=== PATIENT | female | born 1955 | race Caucasian/White ===

== ENCOUNTER → 2016-09-04 | Outpatient (CLI) | payer MEDICAID | LOC: RAD 12:15 | PROVIDERS: ATTEND Physician Assistant Surgical | DX: R06.02 Shortness of breath (principal); J44.9 Chronic obstructive pulmonary disease, unspecified | CPT/HCPCS: 71020 ==

== ENCOUNTER → 2016-09-06 | Outpatient (CLI) | payer MEDICAID | LOC: RAD 11:52 | PROVIDERS: ATTEND Internal Medicine | DX: M54.40 Lumbago with sciatica, unspecified side (principal); M47.896 Other spondylosis, lumbar region | CPT/HCPCS: 72110 ==

== ENCOUNTER 2017-01-06 06:07 | Inpatient (IN) | payer MEDICAID ==
[2017-01-06] MEDS ORDERED: ASPIRIN 81 MG TABLET, CHEWABLE PO ONE (06:23)
[2017-01-06] MEDS ORDERED: ALBUTEROL SULFATE 0.083% NEB 2.5 MG/3 ML AMPUL NEB ONE (06:32)
[2017-01-06] MEDS ORDERED: NORMAL SALINE 500 ML IV ONE (06:32)
[2017-01-06] MEDS ORDERED: MAGNESIUM SULFATE/D5W 100 ML IV ONE (06:32)
[2017-01-06] MEDS ORDERED: IPRATROPIUM/ALBUTEROL 0.5-2.5 MG/3 ML AMPUL NEB ONE (06:32)
[2017-01-06 07:01] LABS: VENOUS BLOOD BASE EXCESS 0.9 mmol/L; VENOUS BLOOD PH 7.26 (7.30-7.42)
[2017-01-06 07:03] LABS: VENOUS BLOOD PCO2 68.7 mmHg (35-63)
[2017-01-06 07:05] LABS: ABSOLUTE EOSINOPHILS # (AUTO) 0.2 10^3/uL (0.0-0.6); ABSOLUTE LYMPHOCYTES (AUTO) 0.4 10^3/uL (0.5-4.7); ABSOLUTE MONOCYTES (AUTO) 0.2 10^3/uL (0.1-1.4); ABSOLUTE NEUT (AUTO) 4.7 10^3/uL (1.7-8.2); BASOPHILS % (AUTO) 0.3 % (0-2); EOSINOPHILS % (AUTO) 3.4 % (0-6); HEMATOCRIT 42.5 % (36.0-47.0); HEMOGLOBIN 14.1 g/dL (12.0-15.5); HGB HCT DIFFERENCE -0.2; MEAN CORPUSCULAR HEMOGLOBIN 30.1 pg (27.0-33.4); MEAN CORPUSCULAR HGB CONC 33.1 g/dL (32.0-36.0); MEAN CORPUSCULAR VOLUME 91 fl (80-97); MONOCYTES % (AUTO) 4.4 % (3-13); RED BLOOD COUNT 4.68 10^6/uL (3.72-5.28); RED CELL DISTRIBUTION WIDTH 13.1 % (11.5-14.0); SEGMENTED NEUTROPHILS % (AUTO) 84.9 % (42-78); WHITE BLOOD COUNT 5.6 10^3/uL (4.0-10.5)
[2017-01-06 07:17] LABS: ALANINE AMINOTRANSFERASE 27 U/L (9-52); ALBUMIN 4.1 g/dL (3.5-5.0); ALKALINE PHOSPHATASE 105 U/L (38-126); ANION GAP 11 (5-19); ASPARTATE AMINO TRANSFERASE 28 U/L (14-36); BILIRUBIN,DIRECT 0.3 mg/dL (0.0-0.4); BILIRUBIN,TOTAL 0.6 mg/dL (0.2-1.3); BLOOD UREA NITROGEN 6 mg/dL (7-20); CALCIUM 9.1 mg/dL (8.4-10.2); CARBON DIOXIDE 30 mmol/L (22-30); CHLORIDE 103 mmol/L (98-107); CREATINE KINASE 124 U/L (30-135); CREATININE RESULT 0.71 mg/dL (0.52-1.25); GLUCOSE 181 mg/dL (75-110); MAGNESIUM 1.8 mg/dL (1.6-2.3); POTASSIUM 4.6 mmol/L (3.6-5.0); TOTAL PROTEIN 7.9 g/dL (6.3-8.2)
[2017-01-06 07:18] LABS: ALCOHOL < 10 mg/dL (NONE DETECTED)
--- NOTE | 2017-01-06 07:19 | RADIOLOGY REPORT (SQ) ---
EXAM DESCRIPTION: CHEST SINGLE VIEW COMPLETED DATE/TIME: 01/06/2017 7:09 am REASON FOR STUDY: cp COMPARISON: Chest x-ray 09/04/2016. EXAM PARAMETERS: NUMBER OF VIEWS: One view. TECHNIQUE: Single frontal radiographic view of the chest acquired. RADIATION DOSE: NA LIMITATIONS: The patient is rotated. FINDINGS: LUNGS AND PLEURA: Patchy ground-glass opacities at the bilateral lung bases. No pneumotho rax. Hyperlucent lungs, suggestive of emphysema. MEDIASTINUM AND HILAR STRUCTURES: No obvious masses. HEART AND VASCULAR STRUCTURES: Heart normal in size. No overt vascular congestion. BONES: No acute findings. HARDWARE: None in the chest. IMPRESSION: Patchy ground-glass opacities at the bilateral lung bases, may represent multifocal pneu monia. Radiographic followup to resolution recommended. Emphysema. TECHNICAL DOCUMENTATION: JOB ID: [id number]
[2017-01-06 07:28] LABS: CREATINE KINASE MB 2.95 ng/mL (<4.55)
[2017-01-06 07:30] LABS: TROPONIN I < 0.012 ng/mL
[2017-01-06] MEDS ORDERED: CEFTRIAXONE 1 GM/D5W RTU 50 ML IV ONE (08:22)
[2017-01-06] MEDS ORDERED: NORMAL SALINE 1000 ML 1,000 ML IV ONE (09:24)
--- NOTE | 2017-01-06 09:24 | ER Document Report ---
ED General - General Chief Complaint: Shortness Of Breath Stated Complaint: RESPIRATORY DISTRESS Time Seen by Provider: 01/06/17 06:23 TRAVEL OUTSIDE OF THE [place] IN LAST 30 DAYS: No - HPI Patient complains to provider of: Shortness of breath Notes: Coming in for acute onset of shortness of breath. Patient does have a history of COPD alcoholic liver cirrhosis. Patient denies any alcohol abuse recently. Patient denies any cough or sputum production. Patient denies fevers chills nausea vomiting any recent travel denies any chest pain. - Related Data Allergies/Adverse Reactions: acetaminophen [From Tylenol] Allergy (Mild, Verified 12/07/15 16:16) GI upset Home Medications: Current Home Medications Budesonide/Formoterol Fumarate [Symbicort HFA 160-4.5 mcg Inhaler 6 gm] 2 puff IH BID 01/06/17 [History] Lorazepam [Ativan 0.5 mg Tablet] 0.5 mg PO Q8HP PRN 01/06/17 [History] Omeprazole 20 mg PO DAILY 01/06/17 [History] Oxycodone HCl [Oxy-Ir 5 mg Tablet] 7.5 mg PO Q12HP PRN 01/06/17 [History] Paroxetine HCl [Paxil] 10 mg PO QAM 01/06/17 [History] Tiotropium [place] [Spiriva Handihaler 18 mcg/dose (30 Dose)] 18 mcg IH DAILY [History] Past Medical History - Social History Smoking Status: Current Every Day Smoker Family History: DM, Other - diabetes - Past Medical History Cardiac Medical History: Denies: Hx Coronary Artery Disease, Hx Heart Attack, Hx Hypertension Pulmonary Medical History: Reports: Hx Pneumonia Denies: Hx Asthma, Hx Bronchitis, Hx COPD Neurological Medical History: Denies: Hx Cerebrovascular Accident, Hx Seizures GI Medical History: Reports: Hx Cirrhosis, Hx Gastroesophageal Reflux Disease, Hx Hepatitis - c, Hx Liver Failure Musculoskeltal Medical History: Denies Hx Arthritis, Reports Hx Musculoskeletal Deformity, Reports Hx Musculoskeletal Trauma Skin Medical History: Denies Hx MRSA Psychiatric Medical History: Reports: Hx Anxiety, Hx Depression Infectious Medical History: Reports: Hx Hepatitis - c. Denies: Hx MRSA Past Surgical History: Reports: Hx Section, Hx Cholecystectomy, Hx Gynecologic Surgery - ovarian wedge., Hx Orthopedic Surgery - carpel tunnel. Denies: Hx Hysterectomy - Immunizations Immunizations up to date: Yes Hx Diphtheria, Pertussis, Tetanus Vaccination: Yes Review of Systems - Review of Systems Constitutional: No symptoms reported EENT: No symptoms reported Cardiovascular: No symptoms reported Respiratory: Short of breath Gastrointestinal: No symptoms reported Genitourinary: No symptoms reported Female Genitourinary: No symptoms reported Musculoskeletal: No symptoms reported Skin: No symptoms reported Hematologic/Lymphatic: No symptoms reported Neurological/Psychological: No symptoms reported -: Yes All other systems reviewed and negative Physical Exam - Vital signs Vitals: Temp 99.6 F 01/06/17 06:12 Interpretation: Hypoxic, Febrile - General General appearance: Appears well, Alert - HEENT Head: Normocephalic, Atraumatic Eyes: Normal Pupils: PERRL - Respiratory Respiratory status: No respiratory distress Breath sounds: Wheezing Chest palpation: Normal - Cardiovascular Rhythm: Regular Heart sounds: Normal auscultation Murmur: No - Abdominal Inspection: Normal Distension: No distension Bowel sounds: Normal Tenderness: Nontender Organomegaly: No organomegaly - Back Back: Normal, Nontender - Extremities General upper extremity: Normal inspection, Nontender, Normal color, Normal ROM , Normal temperature General lower extremity: Normal inspection, Nontender, Normal color, Normal ROM , Normal temperature, Normal weight bearing. No: Brianne's sign - Neurological Neuro grossly intact: Yes Cognition: Normal Orientation: AAOx4 [place] Coma Scale Eye Opening: Spontaneous [place] Coma Scale Verbal: Oriented [place] Coma Scale Motor: Obeys Commands Greene Coma Scale Total: 15 Speech: Normal Motor strength normal: LUE, RUE, LLE, RLE Sensory: Normal - Psychological Associated symptoms: Normal affect, Normal mood - Skin Skin Temperature: Warm Skin Moisture: Dry Skin Color: Normal Course - Re-evaluation Re-evalutation: 01/06/17 14:18 His vital signs does show some mild hypoxia with a fever. Chest x-ray shows pneumonia. Lab work shows hypercarbia. Patient will be admitted with IV antibiotics patient was placed on BiPAP because of the hypercarbia. - Vital Signs Vital signs: Temp Pulse Resp BP Pulse Ox 98.5 F 70 18 100/65 97 01/06/17 12:00 01/06/17 13:45 01/06/17 13:45 01/06/17 12:00 01/06/17 13:45 - Laboratory Result Diagrams: 01/06/17 06:45 06/03/17 06:45 Laboratory results interpreted by me: 01/06/17 01/06/17 01/06/17 06:45 06:45 06:45 Seg Neutrophils % 84.9 H Lymphocytes % 7.0 L Absolute Lymphocytes 0.4 L VBG pH 7.26 L VBG pCO2 68.7 H* BUN 6 L Glucose 181 H Urine Glucose (UA) Urine Blood 01/06/17 09:15 Seg Neutrophils % Lymphocytes % Absolute Lymphocytes VBG pH VBG pCO2 BUN Glucose Urine Glucose (UA) >=500 H Urine Blood SMALL H Critical Care Note - Critical Care Note Total time excluding time spent on procedures (mins): 40 Comments: Multiple evaluations for patient with acute respiratory failure with hypoxia and hypercapnia on BiPAP Discharge - Discharge Clinical Impression: Acute respiratory failure with hypoxia and hypercarbia, COPD with acute exacerbation Pneumonia Qualifiers: Pneumonia type: due to unspecified organism Laterality: unspecified laterality Lung location: unspecified part of lung Qualified Code(s): J18.9 - Pneumonia, unspecified organism Fever Qualifiers: Encounter type: sequela Admitting Provider: [facility] Unit Admitted: [facility]
[2017-01-06] MEDS ORDERED: ACETAMINOPHEN 325 MG TABLET PO PRN (10:09)
[2017-01-06] MEDS ORDERED: ALBUTEROL SULFATE 0.083% NEB 2.5 MG/3 ML AMPUL NEB PRN (10:09)
[2017-01-06] MEDS ORDERED: ACETAMINOPHEN 325 MG TABLET ONE (10:18)
[2017-01-06 10:21] LABS: APPEARANCE,URINE CLEAR; BILIRUBIN,URINE NEGATIVE (NEGATIVE); GLUCOSE, URINE >=500 mg/dL (NEGATIVE); KETONES,URINE NEGATIVE (NEGATIVE); LEUKOCYTE ESTERASE,URINE NEGATIVE (NEGATIVE); NITRITE,URINE NEGATIVE (NEGATIVE); PROTEIN,URINE NEGATIVE (NEGATIVE); URINE SPECIFIC GRAVITY 1.009; UROBILINOGEN,URINE NEGATIVE mg/dL (<2.0)
--- NOTE | 2017-01-06 10:48 | EKG REPORT ---
SEVERITY:- ABNORMAL ECG - SINUS TACHYCARDIA BORDERLINE LEFT AXIS DEVIATION LOW VOLTAGE THROUGHOUT BORDERLINE INFERIOR Q WAVES : Confirmed by: Brigido Lopez 06-Jan-2017 10:47:02
[2017-01-06] MEDS ORDERED: LORAZEPAM INJ 2 MG/1 ML VIAL IV PRN (11:16)
--- NOTE | 2017-01-06 11:17 | PDOC H&P ---
History of Present Illness Admission Date/PCP: 01/06/17 10:09 RIKY NAVARRETE Patient complains of: Shortness of breath History of Present Illness: JERROD SEVILLA is a 61 year old female with past medical history of COPD, cirrhosis that presents with a few days' onset of fever, chills, worsening shortness of breath, cough. Patient has been placed on Symbicort, Spiriva, and albuterol by her pulmonary medicine provider Royer PENG with Dr. Miki mueller. She does not normally require home oxygen. She continues to smoke. Medications have not been verified. Past Medical History Cardiac Medical History: Denies: Coronary Artery Disease, Myocardial Infarction, Hypertension Pulmonary Medical History: Reports: Chronic Obstructive Pulmonary Disease (COPD) , Pneumonia Denies: Asthma, Bronchitis Neurological Medical History: Denies: Seizures GI Medical History: Reports: Cirrhosis, Gastroesophageal Reflux Disease, Hepatitis - c Musculoskeltal Medical History: Denies: Arthritis Psychiatric Medical History: Reports: Depression, Tobacco Dependency Hematology: Denies: Anemia Infectious Medical History: Denies: Methicillin-Resistant Staph Aureus Past Surgical History Past Surgical History: Reports: Section, Cholecystectomy, Orthopedic Surgery - carpel tunnel Denies: Hysterectomy Social History Information Source: Patient, Relative Lives with: Family Smoking Status: Current Every Day Smoker Frequency of Alcohol Use: None Hx Recreational Drug Use: No Hx Prescription Drug Abuse: No - Advance Directive Resuscitation Status: Full Code Family History Family History: DM, Other - diabetes Parental Family History Reviewed: Yes Children Family History Reviewed: Yes Sibling(s) Family History Reviewed.: Yes Medication/Allergy Allergies/Adverse Reactions: acetaminophen [From Tylenol] Allergy (Mild, Verified 12/07/15 16:16) GI upset Review of Systems Constitutional: PRESENT: weakness. ABSENT: chills, fever(s), headache(s), weight gain, weight loss Eyes: ABSENT: visual disturbances Ears: ABSENT: hearing changes Cardiovascular: ABSENT: chest pain, dyspnea on exertion, edema, orthropnea, palpitations Respiratory: PRESENT: cough, dyspnea, sputum. ABSENT: hemoptysis Gastrointestinal: ABSENT: abdominal pain, constipation, diarrhea, hematemesis, hematochezia, nausea, vomiting Genitourinary: ABSENT: dysuria, hematuria Musculoskeletal: ABSENT: joint swelling Integumentary: ABSENT: rash, wounds Neurological: ABSENT: abnormal gait, abnormal speech, confusion, dizziness, focal weakness, syncope Psychiatric: ABSENT: anxiety, depression, homidical ideation, suicidal ideation Endocrine: ABSENT: cold intolerance, heat intolerance, polydipsia, polyuria Hematologic/Lymphatic: ABSENT: easy bleeding, easy bruising Physical Exam Vital Signs: Temp Pulse Resp BP Pulse Ox 100.8 F H 15 109/70 95 01/06/17 07:54 01/06/17 10:01 01/06/17 10:00 01/06/17 10:01 PHYSICAL EXAM: GENERAL: ill-appearing HEENT: Normocephalic, no scleral icterus, conjunctiva clear, EOEM intact, PERRLA , moist mucous membranes NECK: trachea midline, no thyromegally RESPIRATORY: Diminished breath sounds bilaterally, faint wheezes CARDIAC: Regular rate and rhythm, no murmur/ruy/rub ABDOMEN: Soft, distended with probable ascites, no tenderness, no guarding, normal bowel sounds, negative Richey sign RECTAL: deferred : deferred EXTREMITIES: No edema, cyanosis, clubbing MUSCULOSKELETAL: No joint swelling or deformity VASCULAR: normal peripheral pulses NEUROLOGIC: Lethargic, oriented to person/place/time, normal speech, cranial nerves grossly intact, 5/5 strength in all extremities, tactile sensation intact in all extremities SKIN: No rash, no wounds, no worrisome skin lesions PSYCHIATRIC: Lethargic Results Laboratory Results: Labs- All tests 24 hr 01/06/17 01/06/17 01/06/17 06:45 06:45 06:45 WBC 5.6 RBC 4.68 Hgb 14.1 Hct 42.5 MCV 91 MCH 30.1 MCHC 33.1 RDW 13.1 Plt Count 183 Seg Neutrophils % 84.9 H Lymphocytes % 7.0 L Monocytes % 4.4 Eosinophils % 3.4 Basophils % 0.3 Absolute Neutrophils 4.7 Absolute Lymphocytes 0.4 L Absolute Monocytes 0.2 Absolute Eosinophils 0.2 Absolute Basophils 0.0 VBG pH VBG pCO2 VBG HCO3 VBG Base Excess Sodium 144.0 Potassium 4.6 Chloride 103 Carbon Dioxide 30 Anion Gap 11 BUN 6 L Creatinine 0.71 Est GFR ( Amer) > 60 Est GFR (Non-Af Amer) > 60 Glucose 181 H Lactic Acid Calcium 9.1 Magnesium 1.8 Total Bilirubin 0.6 Direct Bilirubin 0.3 Indirect Bilirubin Not Reportable Neonat Total Bilirubin Not Reportable AST 28 ALT 27 Alkaline Phosphatase 105 Creatine Kinase 124 CK-MB (CK-2) 2.95 Troponin I < 0.012 Total Protein 7.9 Albumin 4.1 Urine Color Urine Appearance Urine pH Ur Specific [place] Urine Protein Urine Glucose (UA) Urine Ketones Urine Blood Urine Nitrite Urine Bilirubin Urine Urobilinogen Ur Leukocyte Esterase Urine WBC (Auto) Urine RBC (Auto) Squamous Epi Cells Auto Urine Mucus (Auto) Urine Ascorbic Acid Serum Alcohol < 10 01/06/17 01/06/17 01/06/17 06:45 06:45 09:15 WBC RBC Hgb Hct MCV MCH MCHC RDW Plt Count Seg Neutrophils % Lymphocytes % Monocytes % Eosinophils % Basophils % Absolute Neutrophils Absolute Lymphocytes Absolute Monocytes Absolute Eosinophils Absolute Basophils VBG pH 7.26 L VBG pCO2 68.7 H* VBG HCO3 30.0 VBG Base Excess 0.9 Sodium Potassium Chloride Carbon Dioxide Anion Gap BUN Creatinine Est GFR ( Amer) Est GFR (Non-Af Amer) Glucose Lactic Acid 1.5 Calcium Magnesium Total Bilirubin Direct Bilirubin Indirect Bilirubin Neonat Total Bilirubin AST ALT Alkaline Phosphatase Creatine Kinase CK-MB (CK-2) Troponin I Total Protein Albumin Urine Color YELLOW Urine Appearance CLEAR Urine pH 5.0 Ur Specific [place] 1.009 Urine Protein NEGATIVE Urine Glucose (UA) >=500 H Urine Ketones NEGATIVE Urine Blood SMALL H Urine Nitrite NEGATIVE Urine Bilirubin NEGATIVE Urine Urobilinogen NEGATIVE Ur Leukocyte Esterase NEGATIVE Urine WBC (Auto) 1 Urine RBC (Auto) 0 Squamous Epi Cells Auto <1 Urine Mucus (Auto) RARE Urine Ascorbic Acid NEGATIVE Serum Alcohol 01/06/17 10:04 WBC RBC Hgb Hct MCV MCH MCHC RDW Plt Count Seg Neutrophils % Lymphocytes % Monocytes % Eosinophils % Basophils % Absolute Neutrophils Absolute Lymphocytes Absolute Monocytes Absolute Eosinophils Absolute Basophils VBG pH VBG pCO2 VBG HCO3 VBG Base Excess Sodium Potassium Chloride Carbon Dioxide Anion Gap BUN Creatinine Est GFR ( Amer) Est GFR (Non-Af Amer) Glucose Lactic Acid Calcium Magnesium Total Bilirubin Direct Bilirubin Indirect Bilirubin Neonat Total Bilirubin AST ALT Alkaline Phosphatase Creatine Kinase CK-MB (CK-2) Troponin I 0.014 Total Protein Albumin Urine Color Urine Appearance Urine pH Ur Specific [place] Urine Protein Urine Glucose (UA) Urine Ketones Urine Blood Urine Nitrite Urine Bilirubin Urine Urobilinogen Ur Leukocyte Esterase Urine WBC (Auto) Urine RBC (Auto) Squamous Epi Cells Auto Urine Mucus (Auto) Urine Ascorbic Acid Serum Alcohol Impressions: Chest X-Ray 01/06/17 06:23 IMPRESSION: Patchy ground-glass opacities at the bilateral lung bases, may represent multifocal pneumonia. Radiographic followup to resolution recommended. Emphysema. Assessment & Plan - Diagnosis (1) Acute respiratory failure with hypoxia and hypercarbia Is this a current diagnosis for this admission?: YesPlan: Continue BiPAP for now and initiated in the emergency department. Repeat blood gas later today. Patient does not require oxygen at baseline. (2) COPD with acute exacerbation Is this a current diagnosis for this admission?: YesPlan: Solu-Medrol, nebulizer treatments. Verify outpatient medications and resume. Patient has been seen at Dr. Livingston's office. (3) Sepsis Is this a current diagnosis for this admission?: YesPlan: Secondary to pneumonia. IV fluids, IV antibiotics. (4) Pneumonia Qualifiers: Pneumonia type: due to unspecified organism Laterality: unspecified laterality Lung location: unspecified part of lung Qualified Code(s): J18.9 - Pneumonia, unspecified organism Is this a current diagnosis for this admission?: YesPlan: Likely bacterial. IV Rocephin, IV Levaquin. Check blood culture and sputum culture. (5) Cirrhosis Is this a current diagnosis for this admission?: Yes (6) Tobacco abuse Is this a current diagnosis for this admission?: Yes (7) GERD (gastroesophageal reflux disease) Is this a current diagnosis for this admission?: YesPlan: Protonix. (8) Full code status Is this a current diagnosis for this admission?: Yes (9) Anxiety Is this a current diagnosis for this admission?: YesPlan: Patient has anxiety with chronic benzodiazepine dependence. As needed IV Ativan for now. (10) Chronic pain Is this a current diagnosis for this admission?: YesPlan: Patient has chronic musculoskeletal pain with chronic opiate dependence. Opiates will need to be minimized secondary to lethargy and respiratory failure. - Time Time Spent: Greater than 70 Minutes Disposition: Dr. Navarrete to assume care on Sunday.
[2017-01-06] MEDS ORDERED: ENOXAPARIN SODIUM INJ 40 MG/0.4 ML DISP.SYRIN SUBCUT ONE (12:00)
[2017-01-06] MEDS: NORMAL SALINE 1000 ML 1,000 ML IV PRN ×2 (12:33→19:56)
[2017-01-06] MEDS: LEVOFLOXACIN 750 MG/D5W RTU 750 MG/150 ML RTUPB IV SCH (13:48)
[2017-01-06] MEDS: METHYLPREDNISOLONE INJ 40 MG/1 ML SDV IV SCH ×2 (13:49→21:20)
[2017-01-06 15:24] LABS: VENOUS BLOOD BASE EXCESS -1.6 mmol/L; VENOUS BLOOD HCO3 24.6 mmol/L (20-32); VENOUS BLOOD PCO2 47.3 mmHg (35-63); VENOUS BLOOD PH 7.33 (7.30-7.42)
[2017-01-06] MEDS: LACTULOSE SYRUP 20 GM/30 ML UDCUP PO SCH (17:29)
[2017-01-06] MEDS: PANTOPRAZOLE SODIUM 40 MG VIAL IV SCH (21:20)
[2017-01-06] MEDS: GUAIFENESIN 600 MG TABLET.SA PO SCH (21:20)
[2017-01-06] MEDS ORDERED: BUDESONIDE/FORMOTEROL 160-4.5 MCG 60 PUFF/6 GM MDI IH ONE (21:24)
[2017-01-07] MEDS: LORAZEPAM 0.5 MG TABLET PO PRN ×2 (00:10→21:47)
[2017-01-07] MEDS: OXYCODONE HCL IR 5 MG TABLET PO PRN ×3 (00:11→23:48)
[2017-01-07] MEDS: BUDESONIDE/FORMOTEROL 160-4.5 MCG 60 PUFF/6 GM MDI IH SCH ×3 (00:11→21:47)
[2017-01-07] MEDS: NORMAL SALINE 1000 ML 1,000 ML IV PRN (02:38)
[2017-01-07 05:27] LABS: ABSOLUTE LYMPHOCYTES (AUTO) 0.4 10^3/uL (0.5-4.7); ABSOLUTE MONOCYTES (AUTO) 0.3 10^3/uL (0.1-1.4); ABSOLUTE NEUT (AUTO) 6.1 10^3/uL (1.7-8.2); BASOPHILS % (AUTO) 0.1 % (0-2); HEMATOCRIT 34.3 % (36.0-47.0); HGB HCT DIFFERENCE -0.1; LYMPHOCYTES % (AUTO) 5.7 % (13-45); MEAN CORPUSCULAR HEMOGLOBIN 30.1 pg (27.0-33.4); MEAN CORPUSCULAR HGB CONC 33.2 g/dL (32.0-36.0); MEAN CORPUSCULAR VOLUME 91 fl (80-97); MONOCYTES % (AUTO) 4.8 % (3-13); RED BLOOD COUNT 3.79 10^6/uL (3.72-5.28); RED CELL DISTRIBUTION WIDTH 13.3 % (11.5-14.0); SEGMENTED NEUTROPHILS % (AUTO) 89.4 % (42-78); WHITE BLOOD COUNT 6.8 10^3/uL (4.0-10.5)
[2017-01-07 05:36] LABS: ANION GAP 9 (5-19); BLOOD UREA NITROGEN 10 mg/dL (7-20); CALCIUM 8.1 mg/dL (8.4-10.2); CARBON DIOXIDE 24 mmol/L (22-30); CHLORIDE 108 mmol/L (98-107); CREATININE RESULT 0.56 mg/dL (0.52-1.25); GLUCOSE 172 mg/dL (75-110); POTASSIUM 4.4 mmol/L (3.6-5.0); SODIUM 140.5 mmol/L (137-145)
[2017-01-07 05:37] LABS: HEMOGLOBIN 11.4 g/dL (12.0-15.5)
[2017-01-07] MEDS: METHYLPREDNISOLONE INJ 40 MG/1 ML SDV IV SCH (06:13)
--- NOTE | 2017-01-07 08:05 | PDOC PROGRESS REPORT ---
Subjective Progress Note for:: 01/07/17 Subjective:: Patient feels subjectively better today. She denies shortness of breath, fever , chills, headache, chest pain. Physical Exam Vital Signs: Temp Pulse Resp BP Pulse Ox 97.8 F 83 16 101/50 L 100 01/07/17 05:07 01/07/17 06:41 01/07/17 05:07 01/07/17 05:07 01/07/17 05:07 Intake & Output 01/06/17 01/07/17 01/08/17 06:59 06:59 06:59 Intake Total 2905 Output Total 700 Balance 2205 Weight 57.6 kg GENERAL: No acute distress HEENT: Conjunctiva clear, nonicteric, moist mucous membranes, no JVD, midline trachea RESPIRATORY: Clear to auscultation bilaterally, no wheezes, no rhonchi CARDIAC: Regular rate and rhythm, no murmurs/gallops/rubs ABDOMEN: Soft, nondistended, nontender, positive bowel sounds, no rebound, no guarding EXTREMETIES: No edema, cyanosis, clubbing NEUROLOGIC: Alert, oriented to person/place/time, CN's grossly intact, no focal deficits SKIN: No rash, wounds PSYCH: Normal mood, normal affect Results Laboratory Results: 01/07/17 04:14 01/07/17 04:14 01/06/17 01/06/17 01/07/17 11:22 14:53 04:14 WBC 6.8 RBC 3.79 Hgb 11.4 L D Hct 34.3 L MCV 91 MCH 30.1 MCHC 33.2 RDW 13.3 Plt Count 124 L Seg Neutrophils % 89.4 H Lymphocytes % 5.7 L Monocytes % 4.8 Eosinophils % 0.0 Basophils % 0.1 Absolute Neutrophils 6.1 Absolute Lymphocytes 0.4 L Absolute Monocytes 0.3 Absolute Eosinophils 0.0 Absolute Basophils 0.0 VBG pH 7.33 VBG pCO2 47.3 VBG HCO3 24.6 VBG Base Excess -1.6 Sodium Potassium Chloride Carbon Dioxide Anion Gap BUN Creatinine Est GFR ( Amer) Est GFR (Non-Af Amer) Glucose Calcium Ammonia < 8.7 L 01/07/17 04:14 WBC RBC Hgb Hct MCV MCH MCHC RDW Plt Count Seg Neutrophils % Lymphocytes % Monocytes % Eosinophils % Basophils % Absolute Neutrophils Absolute Lymphocytes Absolute Monocytes Absolute Eosinophils Absolute Basophils VBG pH VBG pCO2 VBG HCO3 VBG Base Excess Sodium 140.5 Potassium 4.4 Chloride 108 H Carbon Dioxide 24 Anion Gap 9 BUN 10 Creatinine 0.56 Est GFR ( Amer) > 60 Est GFR (Non-Af Amer) > 60 Glucose 172 H Calcium 8.1 L Ammonia Impressions: Chest X-Ray 01/06/17 06:23 IMPRESSION: Patchy ground-glass opacities at the bilateral lung bases, may represent multifocal pneumonia. Radiographic followup to resolution recommended. Emphysema. Assessment & Plan - Diagnosis (1) Acute respiratory failure with hypoxia and hypercarbia Is this a current diagnosis for this admission?: YesPlan: Now stable on nasal cannula oxygen. (2) COPD with acute exacerbation Is this a current diagnosis for this admission?: YesPlan: Discontinue Solu-Medrol. Start prednisone 40 mg daily. Continue albuterol. (3) Sepsis Is this a current diagnosis for this admission?: YesPlan: Now afebrile and hemodynamically stable. (4) Pneumonia Qualifiers: Pneumonia type: due to unspecified organism Laterality: unspecified laterality Lung location: unspecified part of lung Qualified Code(s): J18.9 - Pneumonia, unspecified organism Is this a current diagnosis for this admission?: YesPlan: Likely bacterial. IV Rocephin, IV Levaquin pending blood culture and sputum culture. (5) Cirrhosis Is this a current diagnosis for this admission?: Yes (6) Tobacco abuse Is this a current diagnosis for this admission?: Yes (7) GERD (gastroesophageal reflux disease) Is this a current diagnosis for this admission?: Yes (8) Anxiety Is this a current diagnosis for this admission?: YesPlan: Patient has anxiety with chronic benzodiazepine dependence. As needed IV Ativan for now. (9) Chronic pain Is this a current diagnosis for this admission?: YesPlan: Patient has chronic musculoskeletal pain with chronic opiate dependence. Opiates will need to be minimized secondary to lethargy and respiratory failure. (10) Full code status Is this a current diagnosis for this admission?: Yes - Time Time Spent with patient: 35 or more minutes Anticipated discharge: Home Within: within 72 hours
[2017-01-07] MEDS: PAROXETINE HCL 20 MG TABLET PO SCH (09:29)
[2017-01-07] MEDS: PREDNISONE 20 MG TABLET PO SCH (09:30)
[2017-01-07] MEDS: GUAIFENESIN 600 MG TABLET.SA PO SCH ×2 (09:30→21:47)
[2017-01-07] MEDS: CEFTRIAXONE 1 GM/D5W RTU 50 ML IV SCH (09:30)
[2017-01-07] MEDS: PANTOPRAZOLE SODIUM 40 MG VIAL IV SCH ×2 (09:30→21:47)
[2017-01-07] MEDS: ENOXAPARIN SODIUM INJ 40 MG/0.4 ML DISP.SYRIN SUBCUT SCH (09:42)
[2017-01-07] MEDS: LACTULOSE SYRUP 20 GM/30 ML UDCUP PO SCH ×2 (09:42→18:13)
[2017-01-07] MEDS: TIOTROPIUM BROMIDE DPI 5 CAP/KIT (18 MCG/CAP) IH SCH (10:57)
[2017-01-07] MEDS: LEVOFLOXACIN 750 MG/D5W RTU 750 MG/150 ML RTUPB IV SCH (11:21)
[2017-01-07] MEDS ORDERED: NICOTINE 14 MG/24 HR PATCH.TD24 TD ONE (19:45)
[2017-01-08 05:29] LABS: ABSOLUTE LYMPHOCYTES (AUTO) 0.7 10^3/uL (0.5-4.7); ABSOLUTE MONOCYTES (AUTO) 0.5 10^3/uL (0.1-1.4); ABSOLUTE NEUT (AUTO) 6.8 10^3/uL (1.7-8.2); BASOPHILS % (AUTO) 0.1 % (0-2); EOSINOPHILS % (AUTO) 0.3 % (0-6); HEMATOCRIT 33.6 % (36.0-47.0); HEMOGLOBIN 11.2 g/dL (12.0-15.5); LYMPHOCYTES % (AUTO) 9.1 % (13-45); MEAN CORPUSCULAR HEMOGLOBIN 30.2 pg (27.0-33.4); MEAN CORPUSCULAR HGB CONC 33.2 g/dL (32.0-36.0); MEAN CORPUSCULAR VOLUME 91 fl (80-97); MONOCYTES % (AUTO) 6.4 % (3-13); RED BLOOD COUNT 3.69 10^6/uL (3.72-5.28); RED CELL DISTRIBUTION WIDTH 13.2 % (11.5-14.0); SEGMENTED NEUTROPHILS % (AUTO) 84.1 % (42-78); WHITE BLOOD COUNT 8.1 10^3/uL (4.0-10.5)
[2017-01-08 05:47] LABS: ANION GAP 12 (5-19); BLOOD UREA NITROGEN 7 mg/dL (7-20); CALCIUM 8.4 mg/dL (8.4-10.2); CARBON DIOXIDE 24 mmol/L (22-30); CHLORIDE 107 mmol/L (98-107); GLUCOSE 157 mg/dL (75-110); POTASSIUM 3.7 mmol/L (3.6-5.0); SODIUM 142.7 mmol/L (137-145)
[2017-01-08] MEDS: PAROXETINE HCL 20 MG TABLET PO SCH (07:48)
[2017-01-08] MEDS: ENOXAPARIN SODIUM INJ 40 MG/0.4 ML DISP.SYRIN SUBCUT SCH (07:50)
[2017-01-08] MEDS: PREDNISONE 20 MG TABLET PO SCH (09:26)
[2017-01-08] MEDS: GUAIFENESIN 600 MG TABLET.SA PO SCH ×2 (09:27→22:14)
[2017-01-08] MEDS: CEFTRIAXONE 1 GM/D5W RTU 50 ML IV SCH (09:27)
[2017-01-08] MEDS: BUDESONIDE/FORMOTEROL 160-4.5 MCG 60 PUFF/6 GM MDI IH SCH ×2 (09:27→22:17)
[2017-01-08] MEDS: PANTOPRAZOLE SODIUM 40 MG VIAL IV SCH (09:27)
[2017-01-08] MEDS: TIOTROPIUM BROMIDE DPI 5 CAP/KIT (18 MCG/CAP) IH SCH (09:28)
[2017-01-08] MEDS: LACTULOSE SYRUP 20 GM/30 ML UDCUP PO SCH ×2 (09:39→17:13)
[2017-01-08] MEDS ORDERED: LEVOFLOXACIN 750 MG TABLET PO SCH (12:00)
[2017-01-08] MEDS: LEVOFLOXACIN 750 MG TABLET PO SCH (14:05)
[2017-01-08] MEDS: OXYCODONE HCL IR 5 MG TABLET PO PRN (14:05)
[2017-01-08] MEDS: LANSOPRAZOLE 30 MG TAB.RAP.DR PO SCH (17:13)
--- NOTE | 2017-01-08 17:54 | PDOC PROGRESS REPORT ---
Subjective Progress Note for:: 01/08/17 Subjective:: She is doing much better. Dyspnea and wheezes have improved remarkably. We anticipate possible discharge home tomorrow. Physical Exam Vital Signs: Temp Pulse Resp BP Pulse Ox 98.6 F 93 12 112/62 95 01/08/17 15:07 01/08/17 15:07 01/08/17 15:07 01/08/17 15:07 01/08/17 15:07 Intake & Output 01/07/17 01/08/17 01/09/17 06:59 06:59 06:59 Intake Total 2905 2320 445 Output Total 700 Balance 2205 2320 445 Weight 57.6 kg 56.7 kg General appearance: PRESENT: no acute distress, cooperative, well-developed, well-nourished Head exam: PRESENT: atraumatic, normocephalic Eye exam: PRESENT: EOMI, PERRLA Mouth exam: PRESENT: moist, neck supple Neck exam: PRESENT: full ROM Respiratory exam: PRESENT: clear to auscultation shereen, symmetrical Cardiovascular exam: PRESENT: +S1, +S2 Pulses: PRESENT: +2 pedal pulses bilateral Vascular exam: PRESENT: normal capillary refill GI/Abdominal exam: PRESENT: normal bowel sounds, soft Rectal exam: PRESENT: deferred Extremities exam: PRESENT: full ROM Musculoskeletal exam: PRESENT: ambulatory Neurological exam: PRESENT: alert, oriented to person, oriented to place, oriented to time, CN II-XII grossly intact Psychiatric exam: PRESENT: normal mood Results Laboratory Results: 01/08/17 04:52 01/08/17 04:52 01/08/17 01/08/17 04:52 04:52 WBC 8.1 RBC 3.69 L Hgb 11.2 L Hct 33.6 L MCV 91 MCH 30.2 MCHC 33.2 RDW 13.2 Plt Count 139 L Seg Neutrophils % 84.1 H Lymphocytes % 9.1 L Monocytes % 6.4 Eosinophils % 0.3 Basophils % 0.1 Absolute Neutrophils 6.8 Absolute Lymphocytes 0.7 Absolute Monocytes 0.5 Absolute Eosinophils 0.0 Absolute Basophils 0.0 Sodium 142.7 Potassium 3.7 Chloride 107 Carbon Dioxide 24 Anion Gap 12 BUN 7 Creatinine 0.60 Est GFR ( Amer) > 60 Est GFR (Non-Af Amer) > 60 Glucose 157 H Calcium 8.4 01/07/17 10:07 Sputum Gram Stain - Final Impressions: Chest X-Ray 01/06/17 06:23 IMPRESSION: Patchy ground-glass opacities at the bilateral lung bases, may represent multifocal pneumonia. Radiographic followup to resolution recommended. Emphysema. Assessment & Plan - Diagnosis (1) Acute respiratory failure with hypoxia and hypercarbia Is this a current diagnosis for this admission?: YesPlan: Ct with oxygen by N/C at 2 L/min; Albuterol nebs 2.5 g q4h prn; Levaquin 750 mg qd IV; Rocephin 1 G daily IV; Tylenol 650 mg q4h prn po; Symbicort 160/4.5 2 puffs BID; Spiriva 18 mcg qd . (2) COPD with acute exacerbation Is this a current diagnosis for this admission?: YesPlan: Ct with Albuterol nebs 2.5 g q4h prn; Prednisone 40 mg qd; Symbicort 160/4.5 2 puffs BID; Spiriva 18 mcg qd; Oxygen by N/C at 2 L/min. (3) Pneumonia Qualifiers: Pneumonia type: due to unspecified organism Laterality: unspecified laterality Lung location: unspecified part of lung Qualified Code(s): J18.9 - Pneumonia, unspecified organism Is this a current diagnosis for this admission?: YesPlan: Ct with Levaquin 750 mg qd IV; Rocephin 1 G qd IV; Tyenol 650 mg q4h prn po; F/ u blood and sputum culture. (4) Sepsis Is this a current diagnosis for this admission?: YesPlan: Ct with Levaquin 750 mg qd IV; Rocephin 1 G qd IV; Tylenol 650 mg q4h prn po; F/ u sputum and blood culture. (5) GERD (gastroesophageal reflux disease) Is this a current diagnosis for this admission?: YesPlan: Ct with Prevacid 30 mg qd po. (6) Cirrhosis Is this a current diagnosis for this admission?: YesPlan: Ct with Lactulose 20 G BID PO. (7) Lumbago Is this a current diagnosis for this admission?: YesPlan: Ct with Oxycodone 7.5 mg BID prn po. Tylenol 650 mg q4h prn po. (8) Anxiety Is this a current diagnosis for this admission?: YesPlan: Ct with Paroxetine 10 mg qd po; Ativan 0.5mg Q8H prn po. (9) DVT prophylaxis Is this a current diagnosis for this admission?: YesPlan: Ct with Lovenox 40 mg qd SQ; SCD. (10) Tobacco abuse Is this a current diagnosis for this admission?: YesPlan: Ct with Nicotine patch 14 mg qd. - Time Time Spent with patient: 35 or more minutes Smoking Cessation Education: 3 to 10 minutes Medications reviewed and adjusted accordingly: Yes Anticipated discharge: Home Within: within 24 hours
[2017-01-08] MEDS ORDERED: NICOTINE 14 MG/24 HR PATCH.TD24 TD SCH (18:00)
[2017-01-08] MEDS: LORAZEPAM 0.5 MG TABLET PO PRN (22:14)
[2017-01-09 04:38] LABS: ABSOLUTE LYMPHOCYTES (AUTO) 0.7 10^3/uL (0.5-4.7); ABSOLUTE MONOCYTES (AUTO) 0.4 10^3/uL (0.1-1.4); BASOPHILS % (AUTO) 0.1 % (0-2); EOSINOPHILS % (AUTO) 0.3 % (0-6); HEMATOCRIT 36.4 % (36.0-47.0); HGB HCT DIFFERENCE -0.4; LYMPHOCYTES % (AUTO) 8.5 % (13-45); MEAN CORPUSCULAR HEMOGLOBIN 29.9 pg (27.0-33.4); MEAN CORPUSCULAR VOLUME 91 fl (80-97); MONOCYTES % (AUTO) 5.1 % (3-13); RED CELL DISTRIBUTION WIDTH 12.8 % (11.5-14.0); WHITE BLOOD COUNT 8.1 10^3/uL (4.0-10.5)
[2017-01-09 04:59] LABS: ANION GAP 7 (5-19); BLOOD UREA NITROGEN 9 mg/dL (7-20); CALCIUM 8.5 mg/dL (8.4-10.2); CARBON DIOXIDE 28 mmol/L (22-30); CHLORIDE 108 mmol/L (98-107); CREATININE RESULT 0.63 mg/dL (0.52-1.25); GLUCOSE 86 mg/dL (75-110); POTASSIUM 3.6 mmol/L (3.6-5.0); SODIUM 143.1 mmol/L (137-145)
[2017-01-09] MEDS: OXYCODONE HCL IR 5 MG TABLET PO PRN (06:16)
[2017-01-09] MEDS: LANSOPRAZOLE 30 MG TAB.RAP.DR PO SCH (06:17)
[2017-01-09] MEDS: ENOXAPARIN SODIUM INJ 40 MG/0.4 ML DISP.SYRIN SUBCUT SCH (08:24)
[2017-01-09] MEDS: PAROXETINE HCL 20 MG TABLET PO SCH (08:24)
[2017-01-09] MEDS: GUAIFENESIN 600 MG TABLET.SA PO SCH (10:17)
[2017-01-09] MEDS: PREDNISONE 20 MG TABLET PO SCH (10:17)
[2017-01-09] MEDS: LACTULOSE SYRUP 20 GM/30 ML UDCUP PO SCH (10:17)
[2017-01-09] MEDS: CEFTRIAXONE 1 GM/D5W RTU 50 ML IV SCH (10:17)
[2017-01-09] MEDS: TIOTROPIUM BROMIDE DPI 5 CAP/KIT (18 MCG/CAP) IH SCH (10:18)
[2017-01-09] MEDS: BUDESONIDE/FORMOTEROL 160-4.5 MCG 60 PUFF/6 GM MDI IH SCH (10:19)
--- NOTE | 2017-01-09 13:27 | PDOC DISCHARGE SUMMARY ---
General - Admit/Disc Date/PCP Admission Date/Primary Care Provider: 01/06/17 10:09 RIKY NAVARRETE Discharge Date: 01/09/17 - Discharge Diagnosis (1) Acute respiratory failure with hypoxia and hypercarbia Is this a current diagnosis for this admission?: Yes (2) COPD with acute exacerbation Is this a current diagnosis for this admission?: Yes (3) Pneumonia Is this a current diagnosis for this admission?: Yes (4) Sepsis Is this a current diagnosis for this admission?: Yes (5) GERD (gastroesophageal reflux disease) Is this a current diagnosis for this admission?: Yes (6) Cirrhosis Is this a current diagnosis for this admission?: Yes (7) Lumbago Is this a current diagnosis for this admission?: Yes (8) Anxiety Is this a current diagnosis for this admission?: Yes (9) DVT prophylaxis Is this a current diagnosis for this admission?: Yes (10) Tobacco abuse Is this a current diagnosis for this admission?: Yes - Additional Information Resuscitation Status: Full Code Home Medications: Budesonide/Formoterol Fumarate [Symbicort HFA 160-4.5 mcg Inhaler 6 gm] 2 puff IH BID 01/06/17 Lorazepam [Ativan 0.5 mg Tablet] 0.5 mg PO Q8HP PRN 01/06/17 Omeprazole 20 mg PO DAILY 01/06/17 Oxycodone HCl [Oxy-Ir 5 mg Tablet] 7.5 mg PO Q12HP PRN 01/06/17 Paroxetine HCl [Paxil] 10 mg PO QAM 01/06/17 Tiotropium Batson [Spiriva Handihaler 18 mcg/dose (30 Dose)] 18 mcg IH DAILY Guaifenesin [Mucinex Sr 600 mg Tablet.sa] 600 mg PO Q12 #14 tablet.sa 01/09/17 Levofloxacin [Levaquin 500 mg Tablet] 500 mg PO DAILY #10 tablet 01/09/17 Prednisone [Deltasone 20 mg Tablet] 20 mg PO DAILY #7 tablet 01/09/17 History of Present Illness Patient complains of: pt complained of cough, dyspnea, wheezes, fever. History of Present Illness: JERROD SEVILLA is a 61 year old female Hospital Course Hospital Course: 61 yr old woman who was admitted for acute hypoxic/hypercapneic respiratory failure secondary to COPD exacerbation and Sepsis secondary to Pneumonia- community acquired.She was admitted to [facility] and put on steroids and antibiotics and oxygen therapy. She had blood cultures and sputum cultures.She had smoking cessation counseling and ws put on Nicotine patch. She is stable now and will D/ C home today to follow up with PCP, Dr Navarrete within 1 week. Physical Exam Vital Signs: Temp Pulse Resp BP Pulse Ox 98.0 F 90 20 133/66 H 97 01/09/17 12:14 01/09/17 12:14 01/09/17 12:14 01/09/17 12:14 01/09/17 12:14 Intake & Output 01/08/17 01/09/17 01/10/17 06:59 06:59 06:59 Intake Total 2320 2210 452 Balance 2320 2210 452 Weight 56.7 kg 57.2 kg General appearance: PRESENT: no acute distress, well-developed, well-nourished Head exam: PRESENT: normocephalic Eye exam: PRESENT: EOMI, PERRLA Ear exam: PRESENT: normal external ear exam Mouth exam: PRESENT: moist, neck supple, tongue midline Neck exam: PRESENT: full ROM Respiratory exam: PRESENT: clear to auscultation shereen, symmetrical Cardiovascular exam: PRESENT: +S1, +S2 Pulses: PRESENT: +2 pedal pulses bilateral GI/Abdominal exam: PRESENT: normal bowel sounds, soft Rectal exam: PRESENT: deferred Extremities exam: PRESENT: full ROM Neurological exam: PRESENT: alert, awake, oriented to person, oriented to place , oriented to time, CN II-XII grossly intact Psychiatric exam: PRESENT: normal mood Results Laboratory Results: 01/09/17 04:21 01/09/17 04:21 01/09/17 01/09/17 04:21 04:21 WBC 8.1 RBC 4.00 Hgb 12.0 Hct 36.4 MCV 91 MCH 29.9 MCHC 33.0 RDW 12.8 Plt Count 153 Seg Neutrophils % 86.0 H Lymphocytes % 8.5 L Monocytes % 5.1 Eosinophils % 0.3 Basophils % 0.1 Absolute Neutrophils 7.0 Absolute Lymphocytes 0.7 Absolute Monocytes 0.4 Absolute Eosinophils 0.0 Absolute Basophils 0.0 Sodium 143.1 Potassium 3.6 Chloride 108 H Carbon Dioxide 28 Anion Gap 7 BUN 9 Creatinine 0.63 Est GFR ( Amer) > 60 Est GFR (Non-Af Amer) > 60 Glucose 86 Calcium 8.5 01/07/17 10:07 Sputum Gram Stain - Final 01/07/17 10:07 Sputum Sputum Culture - Final C.albicans/C.dubliniensis Greatly Reduced Normal Nancy Impressions: Chest X-Ray 01/06/17 06:23 IMPRESSION: Patchy ground-glass opacities at the bilateral lung bases, may represent multifocal pneumonia. Radiographic followup to resolution recommended. Emphysema.
[2017-01-09 13:59] VITALS: BP 100/65
[2017-01-09] MEDS: LEVOFLOXACIN 750 MG TABLET PO SCH (14:03)
== END 2017-01-09 15:07 | disposition home or self-care (01) | DRG 871 ==
LOC: ER 06:07 → UNDOADMIN 09:37 → EH 09:37 → 3N 11:33
PROVIDERS: ADMIT Internal Medicine; ATTEND Internal Medicine
PROC: 5A09457 Assistance with Respiratory Ventilation, 24-96 Consecutive Hours, Continuous Positive Airway Pressure (ICD-10-PCS; principal; 2017-01-06)
DX: A41.9 Sepsis, unspecified organism (principal); J96.02 Acute respiratory failure with hypercapnia; J96.01 Acute respiratory failure with hypoxia; J18.9 Pneumonia, unspecified organism; J44.0 Chronic obstructive pulmonary disease with (acute) lower respiratory infection; J44.1 Chronic obstructive pulmonary disease with (acute) exacerbation; K21.9 Gastro-esophageal reflux disease without esophagitis; K74.60 Unspecified cirrhosis of liver; M54.5 Low back pain; G89.29 Other chronic pain; F41.9 Anxiety disorder, unspecified; Z79.899 Other long term (current) drug therapy; Z90.49 Acquired absence of other specified parts of digestive tract; F17.200 Nicotine dependence, unspecified, uncomplicated; Z88.6 Allergy status to analgesic agent
CPT/HCPCS: 36415; 71010; 80048; 80053; 80307; 81001; 82140; 82550; 82553; 82803; 83605; 83735; 84484; 85025; 87040; 87070; 87086; 87205; 93005; 93010; 94640; 94660; 96365; 96375; 99291; J0696; J1650; J1956; J2920; J3475; J3490; J7030; J7040; J7512; J7620; S0164

== ENCOUNTER → 2017-05-24 | Outpatient (CLI) | payer MEDICAID ==
--- NOTE | 2017-05-24 10:28 | WOMENS IMAGING REPORT ---
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 Additio nal selected color Doppler and spectral images recorded. LIMITATIONS: None. FINDINGS: PANCREAS: No masses. Visualized pancreatic duct normal caliber. LIVER: 14.5 cm. Increased echogenicity. Slightly nodular appearance. Slightly coarse echotexture. LIVER VASCULATURE: Normal directional flow of the main portal vein and hepatic veins. GALLBLADDER: Surgically absent. ULTRASOUND-DETECTED SNOW'S SIGN: Not applicable. INTRAHEPATIC DUCTS AND COMMON DUCT: CBD and intrahepatic ducts normal caliber. No filling defects. INFERIOR VENA CAVA: Normal flow. AORTA: No aneurysm. RIGHT KIDNEY: Normal size, 9.1 x 3 x 4.5 cm. Normal echogenicity. No solid or suspicious masses. No hydronephrosis. No calcifications. PERITONEAL AND RIGHT PLEURAL SPACE: No ascites or effusions. OTHER: No other significant findings. IMPRESSION: Status postcholecystectomy. Findings in the liver consistent with the history of cirrho sis. TECHNICAL DOCUMENTATION: JOB ID: [id number] [employer]- All Rights Reserved
== END ==
LOC: WI 09:12
PROVIDERS: ATTEND Internal Medicine Gastroenterology
DX: B18.2 Chronic viral hepatitis C (principal); K70.30 Alcoholic cirrhosis of liver without ascites
CPT/HCPCS: 76705

== ENCOUNTER → 2017-05-26 | Outpatient (CLI) | payer MEDICAID ==
--- NOTE | 2017-05-27 11:13 | RADIOLOGY REPORT (SQ) ---
EXAM DESCRIPTION: MRI LUMBAR SPINE WITHOUT COMPLETED DATE/TIME: 05/26/2017 12:46 pm REASON FOR STUDY: OTHER SPECIFIC ARTHROPATHIES, NOT ELSEWHERE M12.88 OTH SPECIFIC ARTHROPATHIES, NE C, [facility] SITE M46.1 SACROILIITIS, NOT ELSEWHERE CLASSIFIED COMPARISON: 2013 TECHNIQUE: Sagittal and Axial imaging includes T1, T2, STIR and gradient echo sequences. Coronal T2/ HASTE imaging. LIMITATIONS: None. FINDINGS: VISUALIZED UPPER ABDOMEN: Fairly limited assessment due to motion. No acute or suspicious abnormality grossly detected. SEGMENTATION: No transitional anatomy. The lowest well-developed disc space is labeled L5-S1. ALIGNMENT: Slight scoliosis without listhesis. VERTEBRAE: Intact. BONE MARROW: Endplate marrow edema at the L1-2 level. Otherwise, normal. DISC SIGNAL: Multilevel decreased disc signal. Decreased disc height at L1-2, L3-4 and L4-5 particul nabeel. Associated small endplate irregularities and generally non acute appearing Schmorl's nodes at L4-5 particularly. POSTERIOR ELEMENTS: No overt pars defect. Lower lumbar spondylosis. HARDWARE: None in the spine. CORD AND CONUS: Normal in size and signal intensity. Conus at the appropriate level. SOFT TISSUES: No aortic aneurysm seen. No bulky retroperitoneal adenopathy or mass. No paraspinal mas s or fluid. L1-L2: Generalized disc bulging with some associated osteophyte formation. Mild flattening of the ve ntral CSF space. Fairly mild central narrowing. Up to moderate right foraminal encroachment. L2-L3: Mild disc and facet disease without central stenosis or high-grade foraminal narrowing. L3-L4: Broad disc bulge. Facet arthropathy. Mild-moderate central narrowing with left lateral reces s encroachment particularly. There is moderate left foraminal stenosis. L4-L5: Disc bulge and facet disease with posterior ligament thickening. Mild to moderate central julio c rowing. Up to moderate right foraminal encroachment. Mild left foraminal narrowing. L5-S1: No significant stenosis. LOWER THORACIC: Disc disease without cord or conus compression or high-grade stenosis on limited asse ssment. SACRUM: Visualized upper sacrum intact. OTHER: No other significant findings. IMPRESSION: 1. Multilevel spondylosis as outlined above. Findings include endplate reactive marrow edema at the degenerated L1-2 disc level. No high-grade central stenosis (up to mild-moderate narrow ing). Findings have generally progressed compared to 2014. TECHNICAL DOCUMENTATION: JOB ID: [id number] [employer]- All Rights Reserved
== END ==
LOC: RAD 11:57
PROVIDERS: ATTEND Nurse Practitioner Psychiatric/Mental Health
DX: M46.1 Sacroiliitis, not elsewhere classified (principal)
CPT/HCPCS: 72148